=== PATIENT | female | born 1995 | race Caucasian/White ===

== ENCOUNTER 2018-01-04 08:53 | Emergency (ER) | payer OTHER ==
[2018-01-04] MEDS ORDERED: IOHEXOL 350 MG/ML 10 ML VIAL (for RAD DIAG) IVCONTRAST ONE (08:54)
[2018-01-04 08:55] VITALS: BP 154/88; PULSE 96; RESP 17; TEMP 98.2; O2SAT 100
[2018-01-04 09:04] VITALS: BP 132/79; PULSE 73; RESP 17; O2SAT 98
--- NOTE | 2018-01-04 09:04 | PD ---
HPI Chief Complaint: Abdominal Pain Time Seen by Provider: 09:02 Travel History International Travel<30 days: No Contact w/Intl Traveler<30days: No Traveled to known affect area: No History of Present Illness HPI Patient came in complaining of crampy, acute onset of suprapubic to left lower quadrant pain approximately 20 minutes prior to arrival, rates it a 5 out of 10 , nonradiating. Patient states no alleviating or aggravating factors. Patient denies any nausea vomiting or diarrhea. Patient does state that she has noticed increased frequency urgency but without dysuria. Patient also denies associated factors such as fever, rash, chest pain, flank pain, cough/runny nose /sore throat. No known drug allergy No significant past medical or surgical history PFSH Past Medical History ?: Not LMP: 12/30/17 Social History Tobacco Use: No Allergies-Medications (Allergen,Severity, Reaction): Coded Allergies: No Known Allergies (Unverified , 01/04/18) Review of Systems General / Constitutional: No: Fever Eyes: No: Visual changes HENT: No: Headaches Cardiovascular: No: Chest Pain or Discomfort Respiratory: No: Shortness of Breath Gastrointestinal: Positive: Abdominal Pain Genitourinary: No: Dysuria Musculoskeletal: No: Pain Skin: No Rash Neurologic: No: Weakness Psychiatric: No: Depression Endocrine: No: Polydipsia Hematologic/Lymphatic: No: Easy Bruising Physical Exam Narrative GENERAL: SKIN: Warm and dry. HEAD: Atraumatic. Normocephalic. EYES: Pupils equal and round. No scleral icterus. No injection or drainage. ENT: No nasal bleeding or discharge. Mucous membranes pink and moist. NECK: Trachea midline. No JVD. CARDIOVASCULAR: Regular rate and rhythm. RESPIRATORY: No accessory muscle use. Clear to auscultation. Breath sounds equal bilaterally. GASTROINTESTINAL: Abdomen soft, MILD LLQ TTPERCUSSION, nondistended. No rigidity guarding or rebound MUSCULOSKELETAL: Extremities without clubbing, cyanosis, or edema. No obvious deformities. NEUROLOGICAL: Awake and alert. No obvious cranial nerve deficits. Motor grossly within normal limits. Five out of 5 muscle strength in the arms and legs. Normal speech. PSYCHIATRIC: Appropriate mood and affect; insight and judgment normal. Data Data Last Documented VS Orders Orders Beta Hcg (Quant/Titer) (01/04/18 09:04) Complete Blood Count With Diff (01/04/18 09:04) Comprehensive Metabolic Panel (01/04/18 09:04) Lipase (01/04/18 09:04) Urinalysis - C+S If Indicated (01/04/18 09:04) Iv Access Insert/Monitor (01/04/18 09:04) Ecg Monitoring (01/04/18 09:04) Oximetry (01/04/18 09:04) Ed Urine Pregnancytest Poc (01/04/18 09:05) Ct Abd/Pel W Iv Contrast(Rout) (01/04/18 09:14) Urine Culture (01/04/18 09:15) Sodium Chlor 0.9% 1000 Ml Inj (Ns 1000 M (01/04/18 10:30) Ceftriaxone Inj (Rocephin Inj) (01/04/18 10:30) Iohexol 350 Inj (Omnipaque 350 Inj) (01/04/18 08:54) Ketorolac Inj (Toradol Inj) (01/04/18 12:00) Us Pelvis Comp W Doppler (01/04/18 11:57) Ed Discharge Order (01/04/18 15:30) Azithromycin (Zithromax) (01/04/18 16:00) Metronidazole (Flagyl) (01/04/18 16:00) Labs Laboratory Tests Test 01/04/18 09:15 01/04/18 09:20 Urine Color YELLOW Urine Turbidity HAZY Urine pH 5.5 Urine Specific [place] 1.030 Urine Protein TRACE mg/dL Urine Glucose (UA) NEG mg/dL Urine Ketones 80 mg/dL Urine Occult Blood SMALL Urine Nitrite NEG Urine Bilirubin NEG Urine Urobilinogen LESS THAN 2.0 MG/DL Urine Leukocyte Esterase LARGE Urine RBC 1 /hpf Urine WBC 15 /hpf Urine Squamous Epithelial Cells 3 /hpf Urine Bacteria OCC /hpf Urine Mucus MANY /lpf Microscopic Urinalysis Comment CULTURE INDICATED White Blood Count 7.4 TH/MM3 Red Blood Count 5.37 MIL/MM3 Hemoglobin 14.9 GM/DL Hematocrit 44.4 % Mean Corpuscular Volume 82.6 FL Mean Corpuscular Hemoglobin 27.8 PG Mean Corpuscular Hemoglobin Concent 33.7 % Red Cell Distribution Width 13.0 % Platelet Count 321 TH/MM3 Mean Platelet Volume 8.0 FL Neutrophils (%) (Auto) 69.2 % Lymphocytes (%) (Auto) 24.4 % Monocytes (%) (Auto) 4.8 % Eosinophils (%) (Auto) 1.2 % Basophils (%) (Auto) 0.4 % Neutrophils # (Auto) 5.1 TH/MM3 Lymphocytes # (Auto) 1.8 TH/MM3 Monocytes # (Auto) 0.4 TH/MM3 Eosinophils # (Auto) 0.1 TH/MM3 Basophils # (Auto) 0.0 TH/MM3 CBC Comment DIFF FINAL Differential Comment Blood Urea Nitrogen 11 MG/DL Creatinine 0.68 MG/DL Random Glucose 76 MG/DL Total Protein 9.5 GM/DL Albumin 5.0 GM/DL Calcium Level 10.1 MG/DL Alkaline Phosphatase 104 U/L Aspartate Amino Transf (AST/SGOT) 36 U/L Alanine Aminotransferase (ALT/SGPT) 43 U/L Total Bilirubin 0.9 MG/DL Sodium Level 139 MEQ/L Potassium Level 3.6 MEQ/L Chloride Level 103 MEQ/L Carbon Dioxide Level 23.9 MEQ/L Anion Gap 12 MEQ/L Estimat Glomerular Filtration Rate 109 ML/MIN Lipase 179 U/L Human Chorionic Gonadotropin, Quant LESS THAN 1 MIU/ML MDM Medical Decision Making Medical Screen Exam Complete: Yes Emergency Medical Condition: Yes Medical Record Reviewed: Yes Differential Diagnosis Colitis versus diverticulitis versus kidney stone versus related such as ectopic versus TOA versus ovarian torsion Narrative Course Bedside test is negative CBC shows no evidence of leukocytosis, no anemia, normal platelet count, no left shift Urinalysis consistent with a UTI Electrolytes are within normal limits, normal kidney liver and pancreatic functions. Quantitative hCG less than 1 CT abdomen and pelvis read by radiologist as unremarkable appearing bowel gas pattern, no kidney stone, no evidence of diverticulitis or colitis. Ultrasound read by radiologist as unremarkable exam Diagnosis Primary Impression: UTI Patient Instructions: General Instructions, Urinary Tract Infection in Women ( [place]) Disposition: 01 DISCHARGE HOME Condition: Stable Taqueria Schmitz MD January 04, 2018 09:04
[2018-01-04 09:55] LABS: AUTOMATED NEUTROPHIL # 5.1 TH/MM3 (1.8-7.7); BASOPHIL % 0.4 % (0.0-2.0); EOSINOPHIL # 0.1 TH/MM3 (0-0.4); EOSINOPHIL % 1.2 % (0.0-4.0); HEMATOCRIT 44.4 % (35.0-46.0); HEMOGLOBIN 14.9 GM/DL (11.6-15.3); LYMPH % 24.4 % (9.0-44.0); LYMPHOCYTE # 1.8 TH/MM3 (1.0-4.8); MEAN CELL VOLUME 82.6 FL (80.0-100.0); MEAN CORPUSCULAR HEMOGLOBIN 27.8 PG (27.0-34.0); MEAN CORPUSCULAR HGB CONC 33.7 % (32.0-36.0); MONO % 4.8 % (0.0-8.0); MONOCYTE # 0.4 TH/MM3 (0-0.9); NEUT % 69.2 % (16.0-70.0); PLATELET COUNT 321 TH/MM3 (150-450); RED BLOOD COUNT 5.37 MIL/MM3 (4.00-5.30); WHITE BLOOD COUNT 7.4 TH/MM3 (4.0-11.0)
[2018-01-04 09:57] LABS: BACTERIA, URINE OCC /hpf; BILIRUBIN, URINE NEG (NEG); BLOOD, URINE SMALL (NEG); GLUCOSE,URINE NEG (NEG); KETONE, URINE 80 mg/dL (NEG); MUCUS URINE MANY /lpf (OCC); NITRITE,URINE NEG (NEG); PH, URINE 5.5 (5.0-8.5); SQUAMOUS EPITHELIAL CELL URINE 3 /hpf (0-5); URINE COLOR YELLOW (YELLW/STRAW); URINE LEUKOCYTE ESTERASE LARGE (NEG)
[2018-01-04 10:00] VITALS: BP 117/76; PULSE 71; RESP 17; O2SAT 98
[2018-01-04 10:20] LABS: AST (GOT) 36 U/L (15-37); BICARBONATE 23.9 MEQ/L (21.0-32.0); BLOOD UREA NITROGEN 11 MG/DL (7-18); CALCIUM 10.1 MG/DL (8.5-10.1); CHLORIDE 103 MEQ/L (98-107); CREATININE 0.68 MG/DL (0.50-1.00); GLOMERULAR FILTRATION RATE 109 ML/MIN (>89); GLUCOSE,RANDOM 76 MG/DL (74-106); SODIUM (NA) 139 MEQ/L (136-145)
[2018-01-04 10:22] LABS: ALT (GPT) 43 U/L (10-53)
[2018-01-04 10:26] LABS: ALKALINE PHOSPHATASE 104 U/L (45-117); TOTAL BILIRUBIN ADULT 0.9 MG/DL (0.2-1.0); TOTAL PROTEIN 9.5 GM/DL (6.4-8.2)
[2018-01-04] MEDS ORDERED: cefTRIAXone INJ 1,000 MG in SODIUM CHLORIDE 0.9% INJ 100 ML IV ONE (10:30)
[2018-01-04] MEDS ORDERED: SODIUM CHLOR 0.9% 1000 ML INJ 1,000 ML IV ONE (10:30)
--- NOTE | 2018-01-04 11:23 | RADRPT ---
EXAM DATE: 01/04/2018 11:12 AM EDT AGE/SEX: 22 years / Female INDICATIONS: Left lower quadrant abdominal pain. CLINICAL DATA: This is the patient's initial encounter. Patient reports that signs and symptoms have been present for 1 day and indicates a pain score of 9/10. MEDICAL/SURGICAL HISTORY: None. None. ORAL CONTRAST: No oral contrast ingested. RADIATION DOSE: 4.78 CTDI (mGy) COMPARISON: No prior [facility] exams available for comparison. TECHNIQUE: Multiple contiguous axial images were obtained through the abdomen and pelvis following b olus infusion of 92 ml Omnipaque 350 (iohexol) nonionic water-soluble contrast as a single exam dos e. No oral contrast ingested. Using automated exposure control and adjustment of the mA and/or kV ac cording to patient size, the radiation dose was kept as low as reasonably achievable to obtain optima l diagnostic quality images. FINDINGS: Lower Lungs: The visualized lower lungs are clear. Liver: The liver has a homogeneous density without space-occupying lesion. There is no dilation of th e biliary tree. Gallbladder is unremarkable appearance. Spleen: Homogeneous density without enlargement. Pancreas: Unremarkable without mass or calcification. Kidneys: Normal in size and shape. No evidence of mass or hydronephrosis. Adrenal Glands: Unremarkable. Aorta: The aorta and proximal iliac vessels are grossly unremarkable without aneurysmal dilation. Bowel/Mesentery: No oral contrast was given limiting the sensitivity of the exam. The bowel loops ar e grossly unremarkable. The cecum and sigmoid colon have a normal configuration. Abdominal Wall: Intact. Retroperitoneum: No evidence of adenopathy in the retrocrural, para-aortic, or deep pelvic regions. Bladder: Contours are smooth. Reproductive Organs: No abnormal masses or calcifications seen. Inguinal: The inguinal region is unremarkable without evidence of adenopathy. Bony Structures: Unremarkable. CONCLUSION: 1. Unremarkable appearing bowel gas pattern performed without oral contrast. 2. No visualized etiology to explain patient's pain. Electronically signed by: Alec Amador MD 01/04/2018 11:21 AM EDT
[2018-01-04 12:00] VITALS: BP 118/74; PULSE 70; RESP 17; O2SAT 98
[2018-01-04] MEDS ORDERED: KETOROLAC TROMETHAMINE 30 MG/ML (IVP) VIAL IV PUSH ONE (12:00)
--- NOTE | 2018-01-04 15:09 | RADRPT ---
EXAM DATE: 01/04/2018 12:38 PM EDT AGE/SEX: 22 years / Female INDICATIONS: Left pelvic pain for 1 day. CLINICAL DATA: This is the patient's initial encounter. Patient reports that signs and symptoms have been present for 1 day and indicates a pain score of 6/10. MEDICAL/SURGICAL HISTORY: . Left pelvic pain for 1 day. . [place] teeth removed. COMPARISON: No prior [facility] exams available for comparison. MEASUREMENTS: Uterus:__7.8 x 3.2 x 5.3 cm Endometrial Stripe:__9 mm Right Ovary:__ 4.3 x 2.4 x 1.5 cm Left Ovary:__ 2.4 x 1.7 x 1.7 cm FINDINGS: Uterus: The myometrium has homogeneous echotexture without mass. Right Ovary: Unremarkable in appearance. There is normal color flow. Left Ovary: Unremarkable in appearance. There is normal color flow. Other: No free fluid. CONCLUSION: 1. Unremarkable exam. Electronically signed by: Alec Amador MD 01/04/2018 3:08 PM EDT
[2018-01-04] MEDS ORDERED: metroNIDAZOLE 500 MG TAB PO ONE (16:00)
[2018-01-04] MEDS ORDERED: AZITHROMYCIN 250 MG TAB PO ONE (16:00)
== END 2018-01-04 16:28 | disposition home or self-care (01) ==
LOC: NEPE 08:53
DX: N39.0 Urinary tract infection, site not specified (principal); B96.20 Unspecified Escherichia coli [E. coli] as the cause of diseases classified elsewhere
CPT/HCPCS: 74177; 76856; 80053; 81001; 83690; 84702; 84703; 85025; 87077; 87086; 87186; 93975; 96365; 96375; 99285; J0696; J1885; J7030; Q9967